=== PATIENT | male | born 1985 | race African-American/Black ===

== ENCOUNTER 2018-09-08 17:20 | Emergency (ER) | payer OTHER ==
[~2018-09-08] VITALS: Ht 182.9 cm; Wt 113.4 kg
[~2018-09-08 17:20] MED LIST: AUGMENTIN 875875 MG PO; BACTRIM DS TAB1 EAC1 PO; CARISOPRODOL 3350 MG PO; HYDROCODONE-AP1 EAC6 PO; IBUPROFEN 800800 M1 PO; LORTAB 5 MG/5001 TA1 PO; MEDROL DOSPAK21 TA1 PO; NOHOMEMEDICATIONS; NORCO 5-325 TA1 EAC1 PO; NORFLEX100 MG PO; PENICILLIN V P500 MG PO; PENICILLIN VK500 MG PO; PERCOCET 5-3251 EACH PO; PERIDEX 0.12%473 M1 SSP; ULTRAM 50MG TAB50 MG PO; VALIUM5 MG PO; VICODIN 5-5001 EACH PO
[2018-09-08 18:37] LABS: URINE BILIRUBIN NEGATIVE (Negative); URINE BLOOD NEGATIVE (Negative); URINE CLARITY CLEAR; URINE COLOR YELLOW; URINE GLUCOSE-RANDOM NEGATIVE (Negative); URINE KETONES NEGATIVE (Negative); URINE LEUKOCYTES-REFLEX NEGATIVE (Negative); URINE NITRITE-REFLEX NEGATIVE (Negative); URINE PROTEIN NEGATIVE (Negative); URINE UROBILINOGEN 0.2 E.U./dl (0.2-1.0)
[2018-09-08 18:58] LABS: ABSOLUTE BASOPHILS 0.1 thou/uL (0.0-0.2); ABSOLUTE EOSINOPHILS 0.1 thou/uL (0.0-0.7); ABSOLUTE LYMPHOCYTES 2.4 thou/uL (0.8-5.3); ABSOLUTE MONOCYTES 0.6 thou/uL (0.0-1.2); BASOPHILS 0.6 %; EOSINOPHILS 1.2 %; HEMATOCRIT 46.3 % (42.0-52.0); HEMOGLOBIN 16.2 gm/dL (14.0-18.0); LYMPHOCYTES 23.5 %; MCH 32.3 pg (26.0-34.0); MCV 92.1 fL (80.0-100.0); MONOCYTES 5.7 %; NUCLEATED RBCS 0 /100WBC; PLATELET COUNT* 216 thou/uL (150-400); RBC 5.03 mil/uL (4.50-6.00); RDW-CV 13.5 % (10.5-14.5); WBC 10.2 thou/uL (4.0-11.0)
[2018-09-08 19:02] LABS: CALCIUM 9.5 mg/dL (8.5-10.1); CREATININE 1.2 mg/dL (0.6-1.3); POTASSIUM 3.5 mmol/L (3.5-5.1)
[2018-09-08 19:11] LABS: ALBUMIN 3.9 g/dL (3.4-5.0); TOTAL BILIRUBIN 0.4 mg/dL (<0.1-1.0); TOTAL PROTEIN 7.8 g/dL (6.4-8.2)
[2018-09-08] MEDS ORDERED: CLARITHROMYCIN500 MG PO (20:20)
[2018-09-08] MEDS ORDERED: AMOXICILLIN 50500 MG PO (20:20)
[2018-09-08] MEDS ORDERED: OMEPRAZOLE40 MG PO (20:20)
[2018-09-08 20:39] VITALS: BP 132/76
--- NOTE | 2018-09-10 12:26 | EKG ---
[place] [address] ELECTROCARDIOGRAM REPORT Name: LIAT PHILLIP Room: [facility]#: [id number] Admission: 09/08/18 Attend Phys: Discharge: 09/08/18 Date of : 81 Report #: [id number] THIS REPORT FOR: //name// [facility] ED Test Date: 2018-09-08 Test Time: 18:32:38 Pat Name: LIAT PHILLIP Department: Room: Gender: Salad Maker: Matteo KLEIN : 1985 Requested By: Elizabeth Vicente Order Number: [id number] MD: Dae Nathan Measurements Intervals [place] Rate: 66 P: 16 CA: 185 QRS: 21 QRSD: 107 T: 17 QT: 368 QTc: 386 Interpretive Statements Sinus rhythm No previous ECG available for comparison Electronically Signed On 09-10-2018 12:26:46 SIGNAL INTELLIGENCE ANALYST by Dae Nathan [email or web address] <ELECTRONICALLY SIGNED> By: Dae Nathan MD, [facility] 09/10/18 1226 1832 1832 Dae Nathan MD, FACC /EPI
== END 2018-09-08 20:40 | disposition home or self-care (01) ==
LOC: M.ERS 17:20
PROVIDERS: Nurse Practitioner Family
DX: K29.80 Duodenitis without bleeding (principal); F17.210 Nicotine dependence, cigarettes, uncomplicated

== ENCOUNTER 2019-08-31 20:56 | Emergency (ER) | payer OTHER ==
[~2019-08-31] VITALS: Ht 182.9 cm; Wt 124.7 kg
[~2019-08-31 20:56] MED LIST changes: +AMOXICILLIN 50500 MG PO; +CLARITHROMYCIN500 MG PO; +OMEPRAZOLE40 MG PO
[2019-08-31 21:00] VITALS: BP 147/93
[2019-08-31] MEDS ORDERED: HYDROCODON-ACE1 EAC8 PO (21:17)
[2019-08-31] MEDS ORDERED: PENICILLIN VK250 MG PO (21:17)
== END 2019-08-31 21:32 | disposition home or self-care (01) ==
LOC: M.ERS 20:56
DX: K02.9 Dental caries, unspecified (principal); F17.210 Nicotine dependence, cigarettes, uncomplicated